=== PATIENT | female | born 1950 | race Caucasian/White ===

== ENCOUNTER → 2022-06-19 | Outpatient (CLI) | payer MEDICARE, MEDICAID, SELFPAY ==
--- NOTE | 2022-06-19 | IMM_PTH ---
PATIENT: LATISHA JONES LOC: [facility] U#:[id number] AGE/SX: 72/F ROOM: RE06/19/[address]: Dr. Enrique Lassiter MD : 1950 BED: DIS: 06/19/2022 SPEC #: [id number] RECD: 06/24/22 12:48 STATUS: TIEN REQ #: [id number] CLAIRE: 06/19/22 00:[address]: Enrique Lassiter DEPT: IMMUNOHISTOCHEMISTRY RECD BY: Kandace Darling Tissues: Right breast, NOS Procedures: SMA (add) CALPONIN-1 (add) CK5-6 (add) CK8 (add) KI-67 (add) Pankeratin (initial) PHYSICIAN & INSTITUTION [place] [id number] SPECIMEN INFORMATION: Tissue Source: Right breast Clinical Info: Right breast mass Specimen Number: [id number] CPT code: 41805, 31890 x5 METHODOLOGY: Deparaffinized sections of prefer/formalin-fixed tissue or PAP/DQ stained slides are incubated with monoclonal/polyclonal antibodies/oligonucleotide probes. Localization is made via biotin free immunoperoxidase method. Appropriate controls are performed and reacted as expected. Results on target cell population are indicated in the following table: RESULTS: ANTIBODY / CLONE RESULT AE1-3 (AE1/AE3/PCK26) positive CK8 (48evvlT17) positive Calponin-1 (AX062S) positive Actin (1A4) positive CK5-6 (D5 & 1684) positive Ki-67 (30-9) positive, <5% These tests were developed and their performance characteristics determined by [facility]. They may not have been cleared or approved by the U.S. Food and Drug Administration. The FDA has determined that such clearance or approval is not necessary. The above immunohistochemical/dualISH markers are ordered and reviewed by the Pathologist. INTERPRETATION: Right breast, core biopsy: Consistent with atypical papillary neoplasm. AM:gracia 06/25/2022 Case has been reviewed in consultation with Dr. Summers who concurs with the above diagnosis. IDC:BLAKE
--- NOTE | 2022-06-19 14:30 | BRBX_PTH ---
PATIENT: LATISHA JONES LOC: [facility] U#:[id number] AGE/SX: 72/F ROOM: RE06/19/[address]: Dr. Enrique Lassiter MD : 1950 BED: DIS: 06/19/2022 SPEC #: [id number] RECD: 06/23/22 09:31 STATUS: TIEN FELISHA #: [id number] CLAIRE: 06/19/22 14:[address]: Enrique Lassiter DEPT: SURGICAL PATHOLOGY RECD BY: Kanwal Gloria Tissues: Right breast, NOS Procedures: Surgery Specimen Level IV HEADER OPERATION: Right breast biopsy PRE-OP DIAGNOSIS: Right breast mass TISSUE SUBMITTED: Right breast tissue MICROSCOPIC DIAGNOSIS Right breast, core biopsy: Consistent with fragments of complex atypical papillary neoplasm. See Comment. AM:gracia 06/24/2022 COMMENT Immunohistochemistry ([id number]) supports the above diagnosis. An intraductal papilloma with mild atypia cannot be excluded. Clinical correlation is suggested. Case has been reviewed in consultation with Dr. Summers who concurs with the above diagnosis. IDC:SJ MICROSCOPIC DESCRIPTION Slides are reviewed. GROSS DESCRIPTION Received in fixative is one container labeled with the patient's name and designated right breast. The specimen consists of multiple elongated fragments of dominique-yellow tissue that in aggregate measure 2.5 x 0.7 x 0.1 cm. The specimen is totally submitted in one cassette. / AM:gracia 06/23/2022 TC:? CPT: 12625
== END | disposition home or self-care (01) ==
PROVIDERS: Visit Provider Surgery
DX: N63.10 Unspecified lump in the right breast, unspecified quadrant (principal)
CPT/HCPCS: 88305; 88341; 88342

== ENCOUNTER 2023-11-26 08:34 | Day surgery (SDC) | payer MEDICARE, MEDICAID, SELFPAY ==
[2023-11-26] VITALS (8 sets, daily range): BP systolic 118–156; BP diastolic 59–99; PULSE 66–71; RESP 16; TEMP 36.1–36.3; O2SAT 92–98; BMI 32.1
--- NOTE | 2023-11-26 | BREAST_PTH ---
PATIENT: LATISHA JONES LOC: [facility] [place] U#:[id number] AGE/SX: 73/F ROOM: RE11/26/[address]: Dr. Enrique Lassiter MD : 1950 BED: DIS: 11/26/2023 SPEC #: [id number] RECD: 11/26/23 10:35 STATUS: TIEN REArianna #: [id number] CLAIRE: 11/26/23 00:[address]: Enrique Lassiter DEPT: SURGICAL PATHOLOGY RECD BY: Jasiel Lau ENTERED: 11/26/23 10:52 SP TYPE: BREAST OTHR DR: Dr. Darek Su DO Tissues: A - Right breast, NOS B - Right breast, NOS Procedures: Surgery Specimen Level IV HEADER OPERATION: Right partial mastectomy PRE-OP DIAGNOSIS: Breast mass, right TISSUE SUBMITTED: A. Right breast mass- short stitch superior, long stitch lateral, B- New medial margin- stitch montero new margin MICROSCOPIC DIAGNOSIS A. Right breast, partial mastectomy with wire localization: Intraductal papilloma with focal minimal atypia (1.0cm in greatest dimension). Focal dense fibrosis. Negative for malignancy. B. New medial margin, excision: Fibrocystic changes and intraductal hyperplasia without atypia. Focal intraductal papillomatosis. Negative for malignancy. /mr 12/01/2023 COMMENT Please make reference to previous specimen [id number] right breast, core biopsy with diagnosis of consistent with fragments of complex atypical papillary neoplasm. Case has been reviewed in consultation with Dr. Arriaga who concurs with the above diagnosis. IDC:AM MICROSCOPIC DESCRIPTION Slides are reviewed. GROSS DESCRIPTION A. Received fresh than part fixed in formalin, labeled with the patient's name is a specimen designated Right breast mass. The specimen consists of a piece of fibroadipose tissue with wire localization measuring 5.0 x 3.5 x 3.0cm. The specimen is inked as follows: anterior - yellow, posterior - black, superior - blue, inferior - green, medial - red and lateral - orange. Sections reveal a dominique indurated mass measuring 1.0 x 0.5 x 0.5cm. This mass is 0.1cm away from the closest posterior margin. Sections of the rest of this specimen reveal dominique-yellow adipose cut surfaces mixed with dominique-white fibrous areas. The entire specimen is submitted in 16 cassettes from medial to lateral margin. Cassette 4 contains the dominique indurated nodule. Sections will be submitted after additional fixation. B. Received in fixative is one container labeled with the patient's name and designated New medial margin. The specimen consists of a piece of fibroadipose tissue measuring 4.2 x 3.5cm and up to 0.9cm in thickness. New margin is identified by a suture that is inked black and the opposite margin is inked blue. Sections reveal yellow cut surfaces mixed with dominique-white fibrous areas. No obvious mass lesion is identified. The entire specimen is submitted in seven cassettes from one end to another end. Sections are submitted after additional fixation. John 11/29/2023 TC:1 CPT: 05505,18067
--- NOTE | 2023-11-26 08:22 | BI_ITS ---
SURGICAL BREAST SPECIMEN RADIOGRAPH CLINICAL: Document presence of mass in biopsy specimen. FINDINGS: Specimen shows presence of mass. Electronically Signed: Ck Yuan MD at 10:58 EDT , BI/Breast Biopsy Specimen IMPRESSION: undefined
--- NOTE | 2023-11-26 09:04 | HP.PCM_ITS ---
History and Physical Date of Admission: 11/26/23 Intake Vital Signs 06/19/2215:12 11/11/2414:16 Height 5 ft 5 ft Weight: 167 lb BMI 32.5 BP 134/72 H Blood Pressure Location Rt brachial Position Sitting Respiration 17 Pulse 70 Pulse Source Monitor Pulse Oximetry (%) 96 Oxygen Delivery Method room air Intake Visit Reasons: Excisional biopsy Chief Complaint: excisional biopsy Is patient in pain?: No Allergies tolmetin (From Tolectin) Allergy (Severe, Verified 11/12/23 15:18) Anaphylaxiscarvedilol Allergy (Mild, Verified 11/12/23 15:18) Other Medications ?Medication ?Instructions ?Recorded ?Confirmed ?Type furosemide 20 mg tablet 20 mg PO 06/19/22 11/12/23 History levothyroxine 100 mcg tablet 100 mcg PO 06/19/22 11/12/23 History melatonin 3 mg tablet 3 mg PO 06/19/22 11/12/23 History metoprolol succinate 25 mg 12.5 mg PO 06/19/22 11/12/23 History tablet,extended release 24 hr midodrine 5 mg tablet ea PO 06/19/22 11/12/23 History pantoprazole 40 mg tablet,delayed 40 mg PO 06/19/22 11/12/23 History release potassium chloride 20 mEq 10 meq PO 06/19/22 11/12/23 History tablet,extended release rosuvastatin 10 mg tablet ea PO 06/19/22 11/12/23 History PFSH Medical History Prediabetes Lupus erythematosus Peripheral edema Hypothyroidism HTN (hypertension) Hyperlipidemia GERD (gastroesophageal reflux disease) Fluttering heart DUNBAR (dyspnea on exertion) Depression Diastolic dysfunction Calcification of mitral valve Anxiety Surgical History S/P cataract extraction Status post eye surgery S/P tubal ligation Family History Mother Heart disease HypertensionBrother CVA (cerebral vascular accident) Heart disease Myocardial infarction HypertensionSister Myocardial infarction Social History Smoking Status: Never smoker HPI HPI HPI: Patient is a 73-year-old female with a known right breast mass. I biopsied this mass about 6 months ago and came back with atypical papillary and she was recommended for excisional biopsy but she did not want to proceed at that time. She presents back as she had her follow-up mammogram which showed that it was more prominent and her primary doctor would like it excised for biopsy. Patient is also having swelling in her left leg and she just had an ultrasound today for possible blood clot. ROS General General: Yes weight change; No appetite, fatigue, colon cancer, breast cancer or weakness HEENT HEENT: Yes eye injury, eye surgery and swollen glands; No difficulty swallowing or hoarseness Endo Endocrine: Yes thyroid disease and diabetes mellitus; No thyroid cancer, Hair loss, heat intolerance or cold intolerance Skin Skin: No rash or changing moles Breast Breast: No left breast lump, right breast lump, nipple discharge, breast pain, abnormal mammogram, abnormal US or breast enlargement Musc Musculoskeletal: Yes back problems and arthritis; No rheumatoid arthritis, gout or joint pain Cardio Cardiovascular: Yes murmur, heart disease, atrial fibrillation and high blood pressure; No pacemaker, heart attack, heart stent, palpitations, shortness of breat with exertion or chest pain Psych Psychiatric: No depression, anxiety or hearing voices Resp Respiratory: No shortness of breath, Yes sleep apnea, Yes cough, No COPD, No asthma, No emphysema and No wheezing Gastro Gastrointestinal: Yes abdominal pain, No nausea or vomiting, No diarrhea, No constipation, No blood in stool, Yes acid reflux, No hemorrhoids, No ulcers, No gallbladder problem and No black,tarry stools Jewel Hematologic: No blood thinners, No blood disorders, No bleeding, No anemia and No blood clots Neuro Neurologic: No system reviewed and no additional complaints, except as documented, No as per HPI, No abnormal gait, No abnormal hearing, No abnormal movements, No abnormal speech, No behavioral changes, No burning sensations, No confusion, No convulsions, No disequilibrium, No dizziness, No localized weakness, No frequent falls, No headache(s), No lack of coordination, No loss of vision, No memory loss, Yes numbness, No other visual disturbances, No radicular pain, No restless legs, No sensory deficit, No syncope, Yes tingling, No tremor(s), No weakness and No other Exam Const General: cooperative Orientation: alert and oriented x3 HENMT Head: normal to inspection Neck Neck: normal visual inspection and full ROM Chest Chest palpation & inspection: normal inspection of the chest Resp Effort & Inspection: normal respiratory effort Auscultation: clear to auscultation bilaterally Cardio Rate: regular rate Rhythm: regular rhythm GI Inspection: non-distended Palpation: soft and nontender Skin General: no rashes or lesions noted Neuro General: patient alert and patient oriented x3 Extrem General: full ROM Psych Appearance: grossly normal Mental Status: mental status grossly normal Assessment and Plan Assessment and Plan (1) Breast mass, right: Status: Acute Qualifiers: Breast mass location: unspecified quadrant Qualified Code(s): N63.10 - Unspecified lump in the right breast, unspecified quadrant Plan: The patient has a right breast mass that came back as atypical papillary tissue with no malignancy. She was recommended to have excisional biopsy at that time but refused. At this time she is agreeable. I discussed stereotactic wire localization of the mass as well as excisional biopsy. I discussed the procedure in detail as well as the risks including not limited to bleeding, infection, hematoma formation or need for further surgery if this is malignant. Patient understands all the risks and is willing to proceed. Enrique Lassiter MD Pager: [facility] [address] [place] [address], [address] [place] [address] Office: I have examined the patient and the H&P has been reviewed. There are no clinical changes since date of exam.
[2023-11-26 09:32] LABS: Bedside Glucose 161 mg/dL (74-106)
[2023-11-26] MEDS: Lactated Ringers 1,000 ML 15 ML IV (09:51)
[2023-11-26] MEDS: Cefazolin 2 GM in 0.9% Normal Saline (100mL Bag) 100 ML IV (10:09)
[2023-11-26] MEDS: Bupivacaine Mpf 0.5% 30 ML VIAL (10:25)
--- NOTE | 2023-11-26 10:37 | PCM.OPRPT ---
Report of Operation Date of Procedure: 11/26/23 Pre-Operative Diagnosis: Right breast mass Post-Operative Diagnosis: Same Surgery/Procedure Performed:: 1. Stereotactic guided wire localization of right breast mass 2. Right partial mastectomy Type of Anesthesia: General/Regional Specimen's removed: 1. Right breast mass 2. New medial margin Estimated Blood Loss (mL): 10 Description of Procedure: Patient was brought to the stereotactic room and placed in the stereotactic table and mammogram was obtained. The clip was localized using the computer. Next the skin was prepped and injected with local anesthetic. The wire was placed into the breast. Stereotactic images were obtained and then the wire was deployed. Mammogram was obtained and then she was brought back down to . Patient was then brought to the operating room and general anesthesia was induced. The right breast was prepped and draped in usual sterile fashion. A curvilinear incision was marked over the wire insertion site. The incision was injected with local anesthetic and then incised with scalpel. Hemostasis was obtained using electrocautery. Flaps were made superiorly and inferiorly and then the wire was followed medially past the wire and then the tissue was taken and sent for pathology. The mass appeared to be close to the medial margin so a new medial margin was obtained and the new margin was sutured. The cavity was irrigated and suctioned dry and hemostasis was obtained using electrocautery. The dermis was closed with interrupted 3-0 Vicryl sutures and the skin was closed with a running 4-0 Monocryl suture. Dermabond was applied. Patient was awoken and taken to PACU in stable condition and tolerated the procedure well. Admit VTE Documentation VTE Mechan Device Prophylaxis: SCD's
--- NOTE | 2023-11-26 10:39 | DCINST_ITS ---
Discharge Instructions Procedure Breast Surgery Diet Discharge Diet: No restrictions Activity Discharge Activity: May Not Drive (for 2-3 days or while taking narcotic pain medications.) May shower in (days): 1 Lifting Restrictions: 15 lbs for 1 week Dressing / Incision Call your doctor if your incision/area has: Continuous Slow Oozing and Increased Redness Call your doctor if you observe: Fever of 101 or Higher Suture Line Care: Avoid Pulling/Pushing and Avoid Pinching/Bending Additional Dressing/Incision Instructions:: Take ibuprofen and Tylenol for pain, oxycodone for breakthrough pain. Follow Up Care Please Follow Up With: Enrique Lassiter MD When: Please call to schedule 2 week follow up appointment. [phone] Test Results: Test results from this visit will be discussed in further detail at your follow- up appointment, if applicable. Discharge Plan Admission Attending Provider: Enrique Lassiter Primary Care Provider: Darek Su Instructions Print Language: Bermudian Discharge Orders/Prescriptions Prescriptions: New oxycodone 5 mg Tablet 5 - 10 mg PO Q4H PRN PRN (Reason: Pain Score 4-10) 5 Days Qty: 20 0RF No Action rosuvastatin 10 mg tablet 10 mg PO QHS Patient Comments: take 1 tablet by mouth at bedtime metoprolol succinate 25 mg tablet extended release 24 hr 25 mg PO BID furosemide 20 mg tablet 20 mg PO DAILY PRN PRN (Reason: edema) Patient Comments: take 1 tablet by mouth WEDNESDAY,WEDNESDAY AND WEDNESDAY IF NEEDED FOR SWELLING levothyroxine 100 mcg tablet 100 mcg PO DAILY melatonin 3 mg tablet 3 mg PO QHS PRN PRN (Reason: sleep) Patient Comments: take 1 tablet by mouth at bedtime if needed for sleep pantoprazole 40 mg tablet,delayed release (DR/EC) 40 mg PO DAILY potassium chloride 20 mEq tablet extended release 20 meq PO DAILY Patient Comments: take 1 tablet by mouth once daily with food Referrals / Follow Up: Darek Su DO [Primary Care Provider] - Disposition Disposition (needs filled in before D/C Order can be placed): Home, Self Care
[2023-11-26] MEDS: Ketorolac 15 MG/ML Vial IV (11:06)
== END 2023-11-26 12:26 | disposition home or self-care (01) ==
LOC: SDC 08:34 → AC 08:36
PROVIDERS: PCP Student in an Organized Health Care Education/Training Program; Referring Provider Surgery; Visit Provider Surgery
PROC: (CPT 19301; principal; 2023-11-26 09:40)
DX: D24.1 Benign neoplasm of right breast (principal); E78.5 Hyperlipidemia, unspecified; K21.9 Gastro-esophageal reflux disease without esophagitis; E03.9 Hypothyroidism, unspecified; I10 Essential (primary) hypertension; Z79.899 Other long term (current) drug therapy
CPT/HCPCS: 19301; 00400; 19281; 76098; 82962; 88305; J7120; J2405